=== PATIENT | female | born 1935 | race Caucasian/White ===

== ENCOUNTER 2017-04-27 09:59 | Emergency (ER) | payer OTHER ==
[~2017-04-27] VITALS: Ht 157.5 cm; Wt 59.3 kg
[2017-04-27 10:09] VITALS: Ht 157.5 cm; Wt 59.3 kg
--- NOTE | 2017-04-27 11:29 | RADRPT ---
PROCEDURE: CT Brain without contrast. CLINICAL INDICATION: 81-year-old female with head trauma. TECHNIQUE: A CT of the brain was performed on a [employer] CT scanner Stirplate.ioi ng a low dose technique with axial imaging from the skull base through the vertex without IV contras t. Multiplanar reformatted images were made. Images were reviewed on a PACS workstation. The CTDI vol is 43.2 mGy and the DLP is 720.2 mGycm. One or more of the following dose reduction techniques were used: - Automated exposure control. - Adjustment of the mA and/or kV according to patient size. Use of iterative reconstruction technique. COMPARISON: None FINDINGS: The fourth ventricle is normal in size. The third and lateral ventricles are dilated with proportio nal sulcal dilatation noted. There are chronic small vessel ischemic changes in the periventricular white matter tracts adjacent to the lateral ventricles. No cortical ischemic changes identified. N o intracranial hemorrhage or mass is noted. A scalp hematoma is identified. The visible portions of the globes and extraocular muscles are normal. There is a 5 mm osteoma in th e right frontal sinus. Remaining portions of the paranasal sinuses are clear. The mastoid air cell s and internal auditory canals are normal. No skull fracture is identified. IMPRESSION: 1. Cerebral atrophy with extensive chronic small vessel ischemic changes in the periventricular whi te matter tracts adjacent to the lateral ventricles. 2. There is a scalp hematoma over the convexity of the skull in the area of the right and left day etal bones. 3. No skull fracture or intracranial hemorrhage is identified. RPTAT:AAJJ Physician Dirk Date Time Electronically viewed and signed by Physician Dirk on 04/27/2017 11:29 JM/
--- NOTE | 2017-04-27 11:38 | RADRPT ---
PROCEDURE: CT Cervical Spine without contrast. CLINICAL INDICATION: Trauma, pain TECHNIQUE: Multiple axial cuts through the cervical spine with coronal and sagittal reformats were obtained without contrast. The calculated radiation dose measures 461 mGy centimeters. The CTDI wyatt sures 22 mGy COMPARISON: None available FINDINGS: There is exaggeration of the normal cervical lordosis. There is no evidence of subluxation. There i s normal height of the vertebral bodies. There is minimal anterolisthesis at C5-C6, 2 mm.. There is no bone destruction or sclerosis. There is no dislocation or fracture. The atlantoaxial articulation appears normal. There is normal craniocervical alignment. There are minimal appearing broad-based disk protrusions at C3-C4 and C4-C5. There is a mild broad- based disk protrusion at C6-C7. There is no bony central canal stenosis identified. There is facet hypertrophic change, which appears mild to moderate through the mid cervical spine. There is minim al appearing right foraminal narrowing at C3-C4. There is no abnormal paravertebral soft tissue mass. IMPRESSION: 1. Exaggeration of the normal cervical lordosis. No visualized fracture or dislocation. 2. Mild disk protrusion at C6-C7. Mild to moderate appearing facet hypertrophy through the mid cerv ical spine. 3. No bony central canal stenosis. Minimal appearing right foraminal narrowing at C3-C4. RPTAT: DD .Los Nava MD, MD Date Time Electronically viewed and signed by .Los Nava MD, MD on 04/27/2017 11:37 .T/
[2017-04-27] MEDS ORDERED: ACETAMINOPHEN 500 MG TAB PO STA (11:45)
--- NOTE | 2017-04-27 11:48 | ERD ---
ER Documentation Chief Complaint Date/Time DATE: 04/27/17 TIME: 11:46 Chief Complaint witnessed fall x 1 hour ago hit back of head - ryanne MAHMOOD This 81-year-old female presents with the daughter. She has a history of dementia. Apparently she tried to get up to answer the doorbell today and tripped and fell backward against a cabinet. She has some swelling on the back of her head. There is no history of loss of consciousness, vomiting, visual changes, weakness or bleeding. There is no history of shortness of breath or dizziness related to the fall according to the flight operation coordinator for the patient. ROS All systems reviewed and are negative except as per history of present illness. Allergies Allergies: Uncoded Allergies: ASA (Allergy, Unknown, 04/27/17) PMhx/Soc History of Surgery: No Anesthesia Reaction: No Hx Neurological Disorder: No Hx Respiratory Disorders: No Hx Cardiac Disorders: No Hx Miscellaneous Medical Probl: No Hx Alcohol Use: No Hx Substance Use: No Hx Tobacco Use: No Smoking Status: Never smoker Physical Exam Vitals Vital Signs Date Time Temp Pulse Resp B/P Pulse Ox O2 Delivery O2 Flow Rate FiO2 04/27/17 10:09 98.7 73 16 122/60 96 Physical Exam Const: [], [id number] per Head: Is a hematoma on the exhibit. There is no appreciable bony step-offs or deformities. Eyes: Normal Conjunctiva ENT: Normal External Ears, Nose and Mouth. Neck: Full range of motion..~ No meningismus. Minimal generalized neck pain without appreciable midline tenderness or deformities. Resp: Clear to auscultation bilaterally Cardio: Regular rate and rhythm, no murmurs Abd: Soft, non tender, non distended. Normal bowel sounds Skin: No petechiae or rashes Back: No midline or flank tenderness Ext: No cyanosis, or edema Neur: Awake and alert. Cranial nerves II through XII grossly intact. No appreciable cerebellar signs Psych: Normal Mood and Affect Procedures/MDM CT brain and cervical spine shows no acute findings. There is signs of atrophy and chronic findings. Patient was stable throughout ED course given Tylenol for pain. Patient presents with occipital hematoma related to mechanical fall today. There is no signs of bleeding, neurologic deficit, bacterial infection, neck injury, additional complications related to the patient's fall or as the reason for fall today. She will discharged home with instructions for Tylenol and further observation. The patient was stable with no new complaints during the ER course. Clinically, there is no current evidence to suggest meningitis, sepsis, acute abdomen, pneumonia, acute coronary syndrome, pulmonary embolism, or any other emergent condition appearing to require further evaluation or hospitalization. The patient should certainly return for any new or worsening symptoms per the aftercare instructions. They should otherwise follow-up with her primary care doctor for reevaluation this week. Departure Diagnosis: Primary Impression: Head injury Encounter type: initial encounter Qualified Code: S09.90XA - Head injury, initial encounter Additional Impression: Fall with no significant injury Encounter type: initial encounter Qualified Code: W19.XXXA - Fall with no significant injury, initial encounter Condition: Stable Patient Instructions: HEAD INJURY, No Wake-Up (Adult) Additional Instructions: No acute findings related to fall seen on CT scan. Take Tylenol for pain. Recheck for new or worsening symptoms with primary care doctor. KAHLIL LEWIS MD Apr 27, 2017 11:48
[2017-04-27 11:56] VITALS: BP 142/62; PULSE 57; RESP 20; TEMP 98.2
== END 2017-04-27 11:58 | disposition home or self-care (01) ==
LOC: FTE 09:59
DX: S09.90XA Unspecified injury of head, initial encounter (principal); R93.0 Abnormal findings on diagnostic imaging of skull and head, not elsewhere classified; W01.198A Fall on same level from slipping, tripping and stumbling with subsequent striking against other object, initial encounter; Y92.9 Unspecified place or not applicable
CPT/HCPCS: 70450; 72125